=== PATIENT | female | born 2005 | race Caucasian/White ===

== ENCOUNTER 2024-07-20 12:43 | Emergency (ER) | payer SELFPAY ==
[2024-07-20] VITALS (17 sets, daily range): BP systolic 131–166; BP diastolic 53–104; PULSE 66–126; RESP 10–26; TEMP 36.8; O2SAT 94–100
--- NOTE | 2024-07-20 13:33 | ED.GENADUL_ITS ---
Discharge Plan Disposition Patient Disposition: Home Condition: Improving Discharge Details Clinical Impression: Abscess, peritonsillar, Strep throat Primary Care Provider: None,None ED Provider: Vicky Severino Home Meds and New Rx's Prescriptions: New amoxicillin-pot clavulanate 875-125 mg tablet 1 tab PO BID Qty: 22 0RF Discharge Instructions Instructions: Peritonsillar Abscess, Adult, Amoxicillin and Clavulanate Additional Instructions: You are found to have a peritonsillar abscess secondary to strep throat. The abscess was drained here. You may continue to have some discomfort and swelling but this should continue to resolve over the next few days. Please take the antibiotics as prescribed. Next dose will be due tomorrow morning. Please continue to encourage hydration. You may continue with Tylenol and ibuprofen as needed for discomfort. If you develop difficulty swallowing, shortness of breath, difficulty breathing or other new/worsening symptoms please seek care urgently once again. Otherwise, I would like for you to follow-up with your primary care in the next 1 to 2 weeks and I have asked our care management team to help arrange for close follow-up. Stand Alone Forms: Work Release HPI <SUSAN Dan - Last Filed: 07/20/24 17:10> General Date/Time Provider Initiated Documentation: 07/20/24 13:33 . Limitations to Documentation: no limitations . Information obtained by: patient, family (mom) and RN notes reviewed . History of Present Illness 18 year old F presents to the emergency department with the chief complaint of sore throat, swelling, described as moderate and similar to prior episodes (has had strep in the past), and is localized to the neck (throat). Patient reports no radiation. Patient started experiencing this week(s) (4) and it has been constant. No relieving factors improve symptom(s), No exacerbating factors reported . Patient notes no other symptoms.. Patient did receive the following treatments prior to arrival, NSAID and other (APAP) Related Data Home Medications ?Medication ?Instructions ?Recorded ?Confirmed amoxicillin 875 mg-potassium 1 tab PO BID #22 tabs 07/20/24 clavulanate 125 mg tablet Previous Rx's ?Medication ?Instructions ?Recorded amoxicillin 875 mg-potassium 1 tab PO BID #22 tabs 07/20/24 clavulanate 125 mg tablet Allergies Allergy/AdvReac Type Severity Reaction Status Date / Time No Known Allergies Allergy Unverified 07/20/24 12:54 General Stated Complaint: Sorethroat FRANCES: 4 Review of Systems <SUSAN Dan - Last Filed: 07/20/24 17:10> Constitutional Constitutional: Reports as per HPI and Denies headache(s) Eyes Eyes: Reports as per HPI, Denies eye discharge and Denies irritation ENT Ears, Nose, Mouth, and Throat: Reports as per HPI and Denies headache(s) Cardiovascular Cardiovascular: Reports as per HPI, Denies chest pain and Denies dyspnea Respiratory Respiratory: Reports as per HPI and Denies dyspnea Gastrointestinal Gastrointestinal: Reports as per HPI, Denies abdominal pain, Denies change in bowel habits, Denies nausea and Denies vomiting Integumentary/Breasts Skin/Breast: Reports as per HPI and Denies rash Neurologic Neurologic: Reports as per HPI and Denies headache(s) Exam <SUSAN Dan - Last Filed: 07/20/24 17:10> Const General: cooperative, comfortable, no acute distress, well developed, well groomed and ill appearing acutely (voice change) Nutritional Appearance: average body habitus and well nourished Orientation: alert and awake [facility] Head: normal to inspection, normocephalic and atraumatic Ears: hearing grossly normal bilaterally, external ears normal and TM's normal bilaterally General nose exam: external nose normal and nares normal Face and sinus: normal facial exam, sinuses nontender and face symmetric Mouth: oral mucosae normal, lip normal, tongue normal, oropharynx normal and moist mucous membranes Teeth and gingiva: dentition normal Throat image: 2 1. Area of maximal swelling. She does have bilateral tonsillar swelling with exudates, uvular displacement away from the left tonsil. She is moving air well, no stridor. Handling her secretions. Patient does have trismus. Eyes General: appearance normal, both eyes and all related structures Neck Neck: normal visual inspection, full ROM and no meningeal signs Resp Effort & Inspection: normal respiratory effort, able to speak in complete sentences and no respiratory distress Auscultation: clear to auscultation bilaterally, no rales, no rhonchi and no wheezes Cardio Rate: regular rate Rhythm: regular rhythm Heart Sounds: S1 normal and S2 normal Skin General skin exam: no rashes or lesions noted Neuro General: patient alert and patient awake Cognition: normal cognition Speech: speech normal Gait: normal gait Course <SUSAN Dan - Last Filed: 07/20/24 17:10> Vital Signs Vital signs: Vital Signs Temperature 36.8 C 07/20/24 12:49 Pulse 83 07/20/24 12:49 Respiratory Rate 16 07/20/24 12:49 Blood Pressure 135/61 07/20/24 12:49 Pulse Oximetry 97 07/20/24 12:49 Temperature 36.8 C 07/20/24 12:49 Pulse 83 07/20/24 12:49 Respiratory Rate 16 07/20/24 12:49 Blood Pressure 135/61 07/20/24 12:49 Pulse Oximetry 97 07/20/24 12:49 Pain Level 6 07/20/24 12:49 Procedure <Vicky Severino MD - Last Filed: 07/20/24 18:01> Abscess Drainage Date of Procedure: 07/20/24 Time of Procedure: 16:30 Provider that performed the procedure: Vicky Severino Standard Time Out Performed: Yes Patient Consented: Written Sedation administered by provider performing procedure: Yes Sedation Given: Ketamine (0.5mg/kg) Route of Administration: IV. Ketamine Dose(mg): 40. Preparation: monitoring analyst applied, pulse oximeter, capnometry used, supplemental O2 applied, suction/airway equipment at bedside and IV secured. ASA Class: I.. Location of Exam: Neck/left side Indication: Abscess. Local anesthetic: Lidocaine 2% and with epi, Amount of Local Anesthetic Used (mL): 0.5. Sterility: Non Sterile. Procedure Prep: Hand hygiene, Surgical Mask and 11 blade. Technique used, incised with blade and needle aspiration. Amount of fluid expressed(mL): 1. Irrigation: no irrigation Packing: None. Outcome: Sucessful. Medical Decision Making <SUSAN Dan - Last Filed: 07/20/24 17:10> Patient is a pleasant 18-year-old female, accompanied by mom, otherwise healthy, presenting today with chief complaint of 4 weeks of tonsillar swelling and sore throat. She reports that she is been seen at outside hospital x 2 and was negative for COVID, flu, strep throat. Was empirically treated with azithromycin. States that she did have a slight improvement few days in but immediately afterwards began having increased swelling and pain once again. Pain is now to the point that she is having difficulty opening her mouth and mom is noted voice change. This is despite mom and patient does take Tylenol and ibuprofen fairly [id number]. She denies any known sick contacts. Patient was not tested for mono. Does not report some fatigue and fevers at home. On exam, patient appears not acutely toxic but definitely has a hot potato voice as well as trismus, exam of the posterior oropharynx is slightly difficult as patient has significant anxiety around her throat being examined. However, when I am able to look at this it does make me concerned for peritonsillar abscess with some uvular shift as well as significant swelling to the left tonsil. She will undergo a CT, blood work and we will begin empiric antibiotics. Given the amount of swelling, will also give a dose of steroids. I did begin the discussion with the patient about potentially needing to have this drained. Given her level of anxiety at baseline, will give half milligram of Ativan, mom is driving home. Labs reviewed. Patient is white count of 17.8, neutrophil predominant. CMP without significant abnormality. [place] negative. Positive for strep. CT reviewed by radiologist: FINDINGS: Orbits and orbital soft tissues: Within normal limits. Visualized paranasal sinuses: There is near complete opacification of the left sphenoid sinus. The remaining visualized paranasal sinuses are clear as are the mastoid air cells. Pharynx : There is enlargement of the tonsils bilaterally, left greater than right. There is a 2.2 AP by 1.1 transverse by 2.6 cm craniocaudad left peritonsillar abscess. Larynx: Within normal limits. Retropharyngeal space: Within normal limits. Parotids/submandibular: Within normal limits. Thyroid gland: There are few tiny (less than 3 mm) nodules in the thyroid gland. No follow-up is recommended. Lymphadenopathy: There are enlarged left cervical lymph nodes. These are likely reactive. Trachea: Within normal limits. Lung apices: Within normal limits. Bones: There is reversal of the normal cervical lordosis which may be due to patient positioning or muscle spasm. Carotids/Jugular: Within normal limits. Soft tissues: Within normal limits. IMPRESSION: Findings of tonsillitis with a 2.2 x 1.1 x 2.6 cm left peritonsillar abscess and reactive left cervical adenopathy. Discussed these findings with patient and mom at length. We discussed her/benefits as well as alternatives associated with drainage of the peritonsillar abscess. The procedure as well as sedation was completed by Dr. Severino. She did obtain written and verbal consent for sedation with ketamine and drainage of the left-sided peritonsillar abscess. Please see her note regarding procedure. Patient tolerated this well did have an immediate improvement in her voice and trismus. Exudate was able to be extracted out from the drainage and sent for testing. At the end of my shift, care transitioned to oncoming provider with sedation still slightly present, patient waking up. Will prescribed augmentin. She did receive steroids initially. Encouraged supportive care and close f/u. As patient does not have PCP, will ask care management to arrange f/u. She does not currently have inxurance but will work on this through [facility]. Quality:SDOH Health Related Social Needs: 2 No Data to Display PFSH <SUSAN Dan - Last Filed: 07/20/24 17:10> All Active Problems (Updated 07/20/24 @ 16:53 by SUSAN Dan) Strep throat (Acute) Abscess, peritonsillar (Acute) Social History Smoking/Tobacco Use Status: Never Smoking risk assessment performed?: Yes Alcohol Intake: never Substance use type: does not use Do you feel safe at home: Yes Do you feel safe in your relationship?: Yes POCUS Exam (ED) <SUSNA Dan - Last Filed: 07/20/24 17:10> Limited Soft Tissue Exam LOCATION OF EXAM: Neck/left side PERTINENT FINDINGS/IMPRESSION: Cobblestoning left peritonsilar abscess and Fluid collection left peritonsillar abscess . <Vicky Severino MD - Last Filed: 07/20/24 18:01> Limited Soft Tissue Exam DATE OF EXAM: 07/20/24 TIME OF EXAM: 16:30 PROVIDER THAT PERFORMED THE STUDY: Vicky Severino IS THIS A REPEAT EXAM DURING THIS ENCOUNTER: No LOCATION OF EXAM: Neck/left side REASON FOR EXAM: Abscess VISUALIZED STRUCTURES: Subcutaneous tissue PERTINENT FINDINGS/IMPRESSION: Cobblestoning and Fluid collection. Exam Complete
--- NOTE | 2024-07-20 13:45 | DI.CT_ITS ---
Exam(s) CT NECK W EXAM: CT NECK W CLINICAL HISTORY: left tonsillar swelling, trismus. TECHNIQUE: Imaging Protocol: Axial computed tomography images with coronal and sagittal reformatted images were created and reviewed. CONTRAST MATERIAL: Intravenous: Omnipaque 350 Contrast volume:100mL COMPARISON: No exams were available for comparison FINDINGS: Orbits and orbital soft tissues: Within normal limits. Visualized paranasal sinuses: There is near complete opacification of the left sphenoid sinus. The remaining visualized paranasal sinuses are clear as are the mastoid air cells. Pharynx : There is enlargement of the tonsils bilaterally, left greater than right. There is a 2.2 AP by 1.1 transverse by 2.6 cm craniocaudad left peritonsillar abscess. Larynx: Within normal limits. Retropharyngeal space: Within normal limits. Parotids/submandibular: Within normal limits. Thyroid gland: There are few tiny (less than 3 mm) nodules in the thyroid gland. No follow-up is re commended. Lymphadenopathy: There are enlarged left cervical lymph nodes. These are likely reactive. Trachea: Within normal limits. Lung apices: Within normal limits. Bones: There is reversal of the normal cervical lordosis which may be due to patient positioning or m uscle spasm. Carotids/Jugular: Within normal limits. Soft tissues: Within normal limits. IMPRESSION: Findings of tonsillitis with a 2.2 x 1.1 x 2.6 cm left peritonsillar abscess and reactive left cervic al adenopathy. RADIATION DOSE DELIVERED: 198.7mGy.cm Total DLP 198.7mGy.cm Total DLP DATA REPOSITORY: All CT scans at this facility are submitted to the National Radiology Data Registry (NRDR) Dose Index Registry (DIR) with the [employer] ([employer]). RADIATION OPTIMIZATION: All CT scans at this facility use at least one of these dose optimization te chniques: automated exposure control; mA and/or kV adjustment per patient size (includes targeted exa ms where dose is matched to clinical indication); or iterative reconstruction.
[2024-07-20] MEDS: Dexamethasone 10 MG/ML VIAL IVP (14:33)
[2024-07-20] MEDS: AMPICILLIN/SULBACTAM 3 GM in Normal Saline 100 ML IVPB (14:33)
[2024-07-20] MEDS: LORazepam 2 MG/ML VIAL 0.5 MG IVP (14:34)
[2024-07-20 14:37] LABS: ALT 35 U/L (14-59); AST 21 U/L (15-37); Albumin 3.8 g/dL (3.4-5.0); Alkaline Phosphatase 58 U/L (46-116); Anion Gap 5.8 mmol/L (3-11); BUN 10 mg/dL (7-18); Bilirubin, Total 0.27 mg/dL (0.2-1.0); CO2 32.2 mmol/L (21.0-32.0); CREATININE 0.7 mg/dL (0.55-1.02); Calcium 9.4 mg/dL (8.5-10.1); Chloride 105 mmol/L (98-107); Glucose 83 mg/dL (74-106); Potassium 3.9 mmol/L (3.5-5.1); Sodium 143 mmol/L (136-145)
[2024-07-20 14:46] LABS: Abs Immature Grans 0.14 10^3/uL (0.0-0.06); Absolute Basophil Count 0.04 10^3/uL (0.0-0.2); Absolute Lymphocyte Count 1.77 10^3/uL (1.2-3.4); Basophils % 0.2 %; HCT 39.8 % (36.0-46.0); HGB 12.6 g/dL (11.2-15.7); Immature Grans % 0.8 %; Lymphocytes % 9.9 %; MCV 88 fL (80-95); MPV 10.4 fL (8.0-11.0); Monocytes % 7.3 %; Neutrophils % 80.8 %; Platelet Count 346 10^3/uL (130-400); RDW 13.1 % (11.7-14.6); RDW-SD 42.1 fL; WBC 17.89 10^3/uL (4.4-10.8)
[2024-07-20 14:52] LABS: Absolute Eosinophil Count 0.18 10^3/uL (0.0-0.7); Absolute Monocyte Count 1.31 10^3/uL (0.1-0.8); Absolute Neutrophil Count 14.46 10^3/uL (1.2-6.7); MCHC 31.7 % (32.0-36.0)
[2024-07-20 15:00] LABS: Mono Screening Negative (Negative)
[2024-07-20] MEDS: Normal Saline - Diluent 50 ML VIAL IJ (15:25)
[2024-07-20] MEDS: Omnipaque 350 MG/ML 100 ML BTL IJ (15:26)
[2024-07-20] MEDS: Benzocaine 20% 60 ML CAN (16:20)
[2024-07-20] MEDS: Ketamine 500 MG/5 ML VIAL (16:27)
--- NOTE | 2024-07-20 16:48 | NUR.NOTE ---
Sedation for jaelyn tonsilar abscess on left side, MD/RT/[employer] in room with RN, IV RAC patent, plan discussed with mother and pt, all consents signed, all precautions at bedside, ETCO2 on, suction set up and available, premedicated with hurricaine spray, BP Q5min, 41mg of Ketamine admin by Dr Johnson at 1627, Lidocaine with epi admin at 1628, area well numbed and then large amount of fluid retrieved/sample sent to lab for culture, pt tolerated very well, VSS with slight tachycardia and HTN but resolving, end of procedure at 1632 with no complications.
[2024-07-20] MEDS: Amox. 875/Clav. 125, 2 TABS/BTL 1 TAB PO (17:07)
[2024-07-20] MEDS: Acetaminophen 500 MG TAB 1000 MG PO (17:09)
[2024-07-20] MEDS: Ketorolac 15 MG/ML VIAL IVP (17:09)
--- NOTE | 2024-07-20 17:10 | RESPIRATORY ---
RT at head of bed for light sedation for tonsilar abscess removal. Prepared equipment included suction with yankauer, nasal cannula with EtCO2 capability, NRB, OxyMask, BVM, and oral airway. Pt not fully asleep at any point in time, maintained airway and oxygenation adequately throughout procedure, pt able to suction themselves immediately post procedure, no other RT intervention needed. Pre vitals: HR 88 RR 20 EtCO2 33 SpO2 97% room air BP 143/68 During Procedure: HR 112 RR 27 EtCO2 33 SpO2 99% on 2L proactively BP 166/104 Post: HR 81 RR 16 EtCO2 35 SpO2 96% room air BP 166/104
== END 2024-07-20 17:30 | disposition home or self-care (01) ==
PROVIDERS: Physician Assistant; Emergency Provider Emergency Medicine
DX: J36 Peritonsillar abscess (principal); R59.0 Localized enlarged lymph nodes; J02.0 Streptococcal pharyngitis
CPT/HCPCS: 36415; 42700; 70491; 76536; 80053; 81025; 87880; 96365; 96375; 99285; 85025; 86308; 87070; 87205; J0295; J1100; J1885; J2004; J2060; J3490